=== PATIENT | male | born 1970 | race Caucasian/White ===

== ENCOUNTER 2023-05-27 12:51 | Emergency (ER) | payer MEDICAID, OTHER ==
[2023-05-27 13:45] LABS: BASOPHILS PERCENT AUTO 0.7 % (0.3-3.8); EOSINOPHILS ABSOLUTE AUTO 0.1 x10-3/uL (0.0-0.6); EOSINOPHILS PERCENT AUTO 2.1 % (0.1-6.8); HEMATOCRIT 38.7 % (38.3-50.1); HEMOGLOBIN 13.1 g/dL (12.9-17.7); LYMPHOCYTES ABSOLUTE AUTO 2.2 x10-3/uL (0.5-4.5); LYMPHOCYTES PERCENT AUTO 42.9 % (15.8-45.3); MEAN CORPUSCULAR HGB CONC 33.9 g/dL (28.7-35.3); MEAN CORPUSCULAR VOLUME 97.3 fL (80.8-98.7); MEAN PLATELET VOLUME 9.9 fL (6.7-11.0); MONOCYTES ABSOLUTE AUTO 0.6 x10-3/uL (0.0-1.2); MONOCYTES PERCENT AUTO 10.8 % (5.5-15.2); NEUTROPHILS ABSOLUTE AUTO 2.3 x10-3/uL (1.7-6.9); NEUTROPHILS PERCENT AUTO 43.5 % (40.3-71.8); PLATELET COUNT,PLT 157 x10(3)uL (117-477); RED BLOOD CELL COUNT 3.97 x10(6)uL (3.90-5.90); RED CELL DISTRIBUTION WIDTH 13.5 % (12.4-15.0); WHITE BLOOD CELL COUNT,WBC 5.2 x10-3/uL (3.2-10.1)
[2023-05-27 13:46] LABS: BLOOD UREA NITROGEN,BUN 22 mg/dL (7-18); BUN/CREATININE RATIO 18.3 (9-20); CALCIUM 10.3 mg/dL (8.6-10.2); CARBON DIOXIDE,CO2 28 mmol/L (21-32); CHLORIDE,CL 100 mmol/L (100-110); CREATININE 1.2 mg/dL (0.70-1.30); EST CRCL DRUG DOSING (CG) 65.79 mL/min; ESTIMATED GFR 72 mL/min (>60); GLUCOSE RANDOM 129 mg/dL (80-116); POTASSIUM,K 4.1 mmol/L (3.5-5.3); SODIUM,NA 136 mmol/L (135-145)
[2023-05-27 13:52] LABS: A/G RATIO 1.3; ALANINE AMINOTRANSFERASE,ALT 25 U/L (12-36); ALBUMIN 3.9 g/dL (3.5-5.2); ALKALINE PHOSPHATASE 98 IU/L (56-112); AMYLASE 72 U/L (25-115); BILIRUBIN TOTAL 0.4 mg/dL (0.1-1.3)
[2023-05-27 14:12] LABS: ASPARTATE AMNIOTRANSFERASE,AST < 5 IU/L (5-25)
[2023-05-27 15:14] VITALS: BP 98/65; PULSE 88
[2023-05-27 15:52] LABS: BILIRUBIN,URINE NEGATIVE (NEGATIVE); GLUCOSE,URINE NORMAL (NORMAL); KETONES,URINE NEGATIVE (NEGATIVE); LEUKOCYTE ESTERASE,URINE NEGATIVE (NEGATIVE); NITRITE,URINE NEGATIVE (NEGATIVE); OCCULT BLOOD,URINE LARGE (NEGATIVE); PROTEIN,URINE NEGATIVE (NEGATIVE); UROBILINOGEN,URINE NORMAL (NEGATIVE)
[2023-05-27 16:02] LABS: APPEARANCE,URINE CLEAR (CLEAR); BACTERIA,URINE OCCASIONAL (NS); COLOR,URINE YELLOW (YELLOW); SQUAMOUS EPITHELIAL CELLS,UR OCCASIONAL (NS,R,O); WBC,URINE 0-5 (0-5)
== END 2023-05-27 15:39 | disposition home or self-care (01) ==
LOC: FB.ED 12:51
DX: N20.0 Calculus of kidney (principal); N30.90 Cystitis, unspecified without hematuria; M51.36 Other intervertebral disc degeneration, lumbar region
CPT/HCPCS: 36415; 74176; 80053; 81001; 82150; 83690; 85025; 99284

== ENCOUNTER 2023-12-16 05:51 | Emergency (ER) | payer MEDICARE, OTHER ==
[2023-12-16 06:23] VITALS: PULSE 118
[2023-12-16 06:35] LABS: HEMOGLOBIN 12.7 g/dL (12.9-17.7); LYMPHOCYTES ABSOLUTE AUTO 1.5 x10-3/uL (0.5-4.5); MONOCYTES ABSOLUTE AUTO 0.5 x10-3/uL (0.0-1.2); NEUTROPHILS ABSOLUTE AUTO 4.6 x10-3/uL (1.7-6.9); WHITE BLOOD CELL COUNT,WBC 6.6 x10-3/uL (3.2-10.1)
[2023-12-16 06:41] LABS: BASOPHILS PERCENT AUTO 0.4 % (0.3-3.8); EOSINOPHILS PERCENT AUTO 0.5 % (0.1-6.8); HEMATOCRIT 36.3 % (38.3-50.1); LYMPHOCYTES PERCENT AUTO 22.5 % (15.8-45.3); MEAN CORPUSCULAR HEMOGLOBIN 32.5 pg (27.0-33.3); MEAN CORPUSCULAR HGB CONC 35.1 g/dL (28.7-35.3); MEAN CORPUSCULAR VOLUME 92.6 fL (80.8-98.7); MEAN PLATELET VOLUME 11.2 fL (6.7-11.0); MONOCYTES PERCENT AUTO 7.3 % (5.5-15.2); NEUTROPHILS PERCENT AUTO 69.3 % (40.3-71.8); PLATELET COUNT,PLT 190 x10(3)uL (117-477); RED BLOOD CELL COUNT 3.91 x10(6)uL (3.90-5.90); RED CELL DISTRIBUTION WIDTH 13.4 % (12.4-15.0)
[2023-12-16 06:52] LABS: A/G RATIO 0.9; ALKALINE PHOSPHATASE 159 IU/L (56-112); BILIRUBIN TOTAL 1.4 mg/dL (0.1-1.3); BLOOD UREA NITROGEN,BUN 35 mg/dL (7-18); BUN/CREATININE RATIO 6.1 (9-20); CARBON DIOXIDE,CO2 20 mmol/L (21-32); CHLORIDE,CL 94 mmol/L (100-110); ESTIMATED GFR 11 mL/min (>60); GLUCOSE RANDOM 383 mg/dL (80-116); POTASSIUM,K 4.3 mmol/L (3.5-5.3); PROTEIN TOTAL,TP 6.4 g/dL (6.0-8.0); SODIUM,NA 129 mmol/L (135-145)
[2023-12-16 06:55] LABS: TROPONIN I 33.9 pg/mL (4.0-60.3)
[2023-12-16 07:04] LABS: C-REACTIVE PROTEIN 7.57 mg/dL (<0.50)
[2023-12-16 07:06] LABS: CREATININE 5.7 mg/dL (0.70-1.30)
[2023-12-16] MEDS: Sodium Chloride 0.9% 10 ML Syringe FLUSH PRN (07:15)
[2023-12-16] MEDS: Sodium Chloride 0.9% 1,000 ML IV ONE (07:18)
[2023-12-16] MEDS: Sodium Chloride 0.9% 1,000 ML IV SCH ×2 (07:32→14:16)
[2023-12-16 07:55] LABS: ALANINE AMINOTRANSFERASE,ALT 87 U/L (12-36); ASPARTATE AMNIOTRANSFERASE,AST 30 IU/L (5-25)
[2023-12-16 08:38] LABS: INFLUENZA A NAA NEGATIVE (NEGATIVE); INFLUENZA B NAA NEGATIVE (NEGATIVE); RESPIRATORY SYNCYTIAL VIR NAA NEGATIVE (NEGATIVE)
[2023-12-16 08:44] LABS: CORONAVIRUS COVID-19 NAA NEGATIVE (NEGATIVE)
[2023-12-16 09:43] LABS: BILIRUBIN,URINE SMALL (NEGATIVE); GLUCOSE,URINE 250 mg/dL (NORMAL); KETONES,URINE NEGATIVE (NEGATIVE); LEUKOCYTE ESTERASE,URINE SMALL (NEGATIVE); NITRITE,URINE NEGATIVE (NEGATIVE); OCCULT BLOOD,URINE MODERATE (NEGATIVE); PROTEIN,URINE TRACE mg/dL (NEGATIVE); UROBILINOGEN,URINE 1 mg/dL (NEGATIVE)
[2023-12-16 09:46] LABS: APPEARANCE,URINE SLIGHTLY CLOUDY (CLEAR); BACTERIA,URINE MODERATE (NS); COLOR,URINE YELLOW (YELLOW); RBC,URINE 0-5 (0-5); SQUAMOUS EPITHELIAL CELLS,UR FEW (NS,R,O)
[2023-12-16] MEDS: Levofloxacin/Dextrose 5%-Water 750 MG in Premix Bag 1 BAG IV ONE (12:14)
[2023-12-16 15:08] VITALS: BP 94/56
[2023-12-17 19:08] LABS: PROCALCITONIN 0.63 ng/mL
== END 2023-12-16 15:00 ==
LOC: FB.ED 05:51
DX: I95.9 Hypotension, unspecified (principal); E87.1 Hypo-osmolality and hyponatremia; N17.9 Acute kidney failure, unspecified; R73.9 Hyperglycemia, unspecified; R74.01 Elevation of levels of liver transaminase levels; R00.0 Tachycardia, unspecified; R79.89 Other specified abnormal findings of blood chemistry; E80.6 Other disorders of bilirubin metabolism; E88.09 Other disorders of plasma-protein metabolism, not elsewhere classified; R74.8 Abnormal levels of other serum enzymes; E86.0 Dehydration; E66.9 Obesity, unspecified; Z85.72 Personal history of non-Hodgkin lymphomas; W19.XXXA Unspecified fall, initial encounter
CPT/HCPCS: 0241U; 36415; 70450; 71045; 73080; 74176; 80053; 81001; 83605; 83880; 84145; 84484; 85025; 86140; 87040; 87086; 93005; 93010; 96361; 96365; 96366; 99285; J1956; J3490; J7030

== ENCOUNTER 2024-01-08 12:40 | Emergency (ER) | payer MEDICARE, OTHER ==
[2024-01-08 13:04] LABS: BASOPHILS PERCENT AUTO 0.3 % (0.3-3.8); EOSINOPHILS ABSOLUTE AUTO 0.1 x10-3/uL (0.0-0.6); EOSINOPHILS PERCENT AUTO 0.7 % (0.1-6.8); HEMATOCRIT 40.8 % (38.3-50.1); HEMOGLOBIN 13.5 g/dL (12.9-17.7); LYMPHOCYTES ABSOLUTE AUTO 1.8 x10-3/uL (0.5-4.5); LYMPHOCYTES PERCENT AUTO 15.6 % (15.8-45.3); MEAN CORPUSCULAR HEMOGLOBIN 32.5 pg (27.0-33.3); MEAN CORPUSCULAR HGB CONC 33.2 g/dL (28.7-35.3); MEAN CORPUSCULAR VOLUME 97.7 fL (80.8-98.7); MEAN PLATELET VOLUME 9.3 fL (6.7-11.0); MONOCYTES ABSOLUTE AUTO 1.4 x10-3/uL (0.0-1.2); MONOCYTES PERCENT AUTO 12.2 % (5.5-15.2); NEUTROPHILS ABSOLUTE AUTO 8.1 x10-3/uL (1.7-6.9); NEUTROPHILS PERCENT AUTO 71.2 % (40.3-71.8); PLATELET COUNT,PLT 280 x10(3)uL (117-477); RED BLOOD CELL COUNT 4.17 x10(6)uL (3.90-5.90); RED CELL DISTRIBUTION WIDTH 15.1 % (12.4-15.0); WHITE BLOOD CELL COUNT,WBC 11.4 x10-3/uL (3.2-10.1)
[2024-01-08 13:09] VITALS: BP 148/96; PULSE 104
[2024-01-08 13:11] LABS: BILIRUBIN,URINE NEGATIVE (NEGATIVE); GLUCOSE,URINE NORMAL (NORMAL); KETONES,URINE NEGATIVE (NEGATIVE); LEUKOCYTE ESTERASE,URINE NEGATIVE (NEGATIVE); NITRITE,URINE NEGATIVE (NEGATIVE); OCCULT BLOOD,URINE NEGATIVE (NEGATIVE); PROTEIN,URINE NEGATIVE (NEGATIVE); UROBILINOGEN,URINE NORMAL (NEGATIVE)
[2024-01-08 13:12] LABS: BLOOD UREA NITROGEN,BUN 16 mg/dL (7-18); BUN/CREATININE RATIO 12.3 (9-20); CALCIUM 11.2 mg/dL (8.6-10.2); CARBON DIOXIDE,CO2 28 mmol/L (21-32); CHLORIDE,CL 105 mmol/L (100-110); CREATININE 1.3 mg/dL (0.70-1.30); EST CRCL DRUG DOSING (CG) 55.85 mL/min; ESTIMATED GFR 65 mL/min (>60); GLUCOSE RANDOM 66 mg/dL (80-116); POTASSIUM,K 3.7 mmol/L (3.5-5.3); SODIUM,NA 143 mmol/L (135-145)
[2024-01-08 13:17] LABS: APPEARANCE,URINE CLEAR (CLEAR); BACTERIA,URINE FEW (NS); CALCIUM OXALATE CRYSTALS,URINE OCCASIONAL (NS); COARSE GRANULAR CASTS,URINE OCCASIONAL (NS); COLOR,URINE YELLOW (YELLOW); MUCUS,URINE FEW (NS); RBC,URINE 0-5 (0-5); SQUAMOUS EPITHELIAL CELLS,UR OCCASIONAL (NS,R,O); WBC,URINE 0-5 (0-5)
[2024-01-08 13:18] LABS: A/G RATIO 0.9; ALANINE AMINOTRANSFERASE,ALT 54 U/L (12-36); ALBUMIN 3.7 g/dL (3.5-5.2); ALKALINE PHOSPHATASE 117 IU/L (56-112); ASPARTATE AMNIOTRANSFERASE,AST 44 IU/L (5-25); BILIRUBIN TOTAL 0.7 mg/dL (0.1-1.3); PROTEIN TOTAL,TP 7.8 g/dL (6.0-8.0)
[2024-01-08 13:18] LABS: AMPHETAMINES SCREEN, URINE NEGATIVE (NEGATIVE); BARBITURATE SCREEN,URINE NEGATIVE (NEGATIVE); BENZODIAZEPINES SCREEN,URINE NEGATIVE (NEGATIVE); BUPRENORPHINE SCREEN,URINE NEGATIVE (NEGATIVE); METHADONE SCREEN, URINE NEGATIVE (NEGATIVE); METHAMPHETAMINE SCREEN, URINE NEGATIVE (NEGATIVE); OXYCODONE SCREEN,URINE NEGATIVE (NEGATIVE); THC SCREEN,URINE NEGATIVE (NEGATIVE)
[2024-01-08 14:07] LABS: INFLUENZA A NAA NEGATIVE (NEGATIVE); INFLUENZA B NAA NEGATIVE (NEGATIVE); RESPIRATORY SYNCYTIAL VIR NAA NEGATIVE (NEGATIVE)
[2024-01-08 14:09] LABS: CORONAVIRUS COVID-19 NAA NEGATIVE (NEGATIVE)
[2024-01-08 15:44] LABS: ETHANOL BLOOD MEDICAL < 0.03 % (<0.03)
[2024-01-08] MEDS: Sodium Chloride 0.9% 1,000 ML IV SCH (15:47)
[2024-01-08 15:56] LABS: ACETAMINOPHEN < 2 ug/mL (<2); SALICYLATE < 2.8 mg/dL (<2.8)
[2024-01-10 23:58] LABS: THYROXINE FREE 1.1 ng/dL (0.9-1.7)
== END 2024-01-08 18:00 | disposition home or self-care (01) ==
LOC: FB.ED 12:40
DX: E86.0 Dehydration (principal); E16.2 Hypoglycemia, unspecified; I25.2 Old myocardial infarction; Z79.899 Other long term (current) drug therapy
CPT/HCPCS: 0241U; 36415; 80053; 80143; 80179; 80307; 81001; 82947; 84439; 84443; 85025; 96360; 99284; 99284-25; J7030

== ENCOUNTER 2024-07-28 18:52 | Emergency (ER) | payer OTHER ==
[2024-07-28 19:39] LABS: BASOPHILS PERCENT AUTO 0.4 % (0.3-3.8); EOSINOPHILS PERCENT AUTO 0.3 % (0.1-6.8); HEMATOCRIT 45.2 % (38.3-50.1); HEMOGLOBIN 15.4 g/dL (12.9-17.7); LYMPHOCYTES ABSOLUTE AUTO 1.8 x10-3/uL (0.5-4.5); LYMPHOCYTES PERCENT AUTO 26.7 % (15.8-45.3); MEAN CORPUSCULAR HEMOGLOBIN 31.4 pg (27.0-33.3); MEAN CORPUSCULAR VOLUME 92.4 fL (80.8-98.7); MEAN PLATELET VOLUME 9.2 fL (6.7-11.0); MONOCYTES ABSOLUTE AUTO 0.9 x10-3/uL (0.0-1.2); MONOCYTES PERCENT AUTO 12.9 % (5.5-15.2); NEUTROPHILS PERCENT AUTO 59.7 % (40.3-71.8); PLATELET COUNT,PLT 206 x10(3)uL (117-477); RED BLOOD CELL COUNT 4.89 x10(6)uL (3.90-5.90); RED CELL DISTRIBUTION WIDTH 14.3 % (12.4-15.0); WHITE BLOOD CELL COUNT,WBC 6.8 x10-3/uL (3.2-10.1)
[2024-07-28 19:40] LABS: BLOOD UREA NITROGEN,BUN 16 mg/dL (7-18); BUN/CREATININE RATIO 12.3 (9-20); CALCIUM 11.2 mg/dL (8.6-10.2); CARBON DIOXIDE,CO2 29 mmol/L (21-32); CHLORIDE,CL 102 mmol/L (100-110); CREATININE 1.3 mg/dL (0.70-1.30); EST CRCL DRUG DOSING (CG) 60.03 mL/min; ESTIMATED GFR 65 mL/min (>60); GLUCOSE RANDOM 96 mg/dL (80-116); POTASSIUM,K 3.6 mmol/L (3.5-5.3); SODIUM,NA 137 mmol/L (135-145)
[2024-07-28 19:45] LABS: ALANINE AMINOTRANSFERASE,ALT 46 U/L (12-36); ALBUMIN 3.5 g/dL (3.5-5.2); ALKALINE PHOSPHATASE 97 IU/L (56-112); ASPARTATE AMNIOTRANSFERASE,AST 30 IU/L (5-25); BILIRUBIN TOTAL 0.5 mg/dL (0.1-1.3); PROTEIN TOTAL,TP 7.2 g/dL (6.0-8.0)
[2024-07-28] MEDS: OLANZapine 10 MG Vial IM ONE (19:46)
[2024-07-28 19:54] LABS: TSH ULTRASENSITIVE 2.11 IU/mL (0.36-3.74)
[2024-07-28 20:01] LABS: ETHANOL BLOOD MEDICAL < 0.03 % (<0.03)
[2024-07-28 20:17] LABS: AMPHETAMINES SCREEN, URINE NEGATIVE (NEGATIVE); BARBITURATE SCREEN,URINE NEGATIVE (NEGATIVE); BENZODIAZEPINES SCREEN,URINE NEGATIVE (NEGATIVE); METHADONE SCREEN, URINE NEGATIVE (NEGATIVE); METHAMPHETAMINE SCREEN, URINE NEGATIVE (NEGATIVE); OXYCODONE SCREEN,URINE NEGATIVE (NEGATIVE); THC SCREEN,URINE NEGATIVE (NEGATIVE)
[2024-07-28 20:18] LABS: BUPRENORPHINE SCREEN,URINE NEGATIVE (NEGATIVE)
[2024-07-28 23:02] VITALS: BP 119/82; PULSE 100
[2024-07-31 02:44] LABS: THYROXINE FREE 1.2 ng/dL (0.9-1.7)
== END 2024-07-29 03:00 | disposition home or self-care (01) ==
LOC: FB.ED 18:52
DX: F28 Other psychotic disorder not due to a substance or known physiological condition (principal); I25.2 Old myocardial infarction; Z79.899 Other long term (current) drug therapy
CPT/HCPCS: 36415; 80053; 80307; 84439; 84443; 85025; 96372; 99283; 99285; J2359

== ENCOUNTER 2024-08-03 06:58 | Emergency (ER) | payer OTHER ==
[2024-08-03 07:48] LABS: BASOPHILS PERCENT AUTO 0.4 % (0.3-3.8); EOSINOPHILS ABSOLUTE AUTO 0.1 x10-3/uL (0.0-0.6); EOSINOPHILS PERCENT AUTO 0.8 % (0.1-6.8); HEMATOCRIT 41.1 % (38.3-50.1); HEMOGLOBIN 14.1 g/dL (12.9-17.7); LYMPHOCYTES ABSOLUTE AUTO 2.4 x10-3/uL (0.5-4.5); LYMPHOCYTES PERCENT AUTO 36.8 % (15.8-45.3); MEAN CORPUSCULAR HEMOGLOBIN 31.1 pg (27.0-33.3); MEAN CORPUSCULAR HGB CONC 34.2 g/dL (28.7-35.3); MEAN CORPUSCULAR VOLUME 91.1 fL (80.8-98.7); MEAN PLATELET VOLUME 9.8 fL (6.7-11.0); MONOCYTES ABSOLUTE AUTO 0.4 x10-3/uL (0.0-1.2); MONOCYTES PERCENT AUTO 5.8 % (5.5-15.2); NEUTROPHILS ABSOLUTE AUTO 3.7 x10-3/uL (1.7-6.9); NEUTROPHILS PERCENT AUTO 56.2 % (40.3-71.8); PLATELET COUNT,PLT 229 x10(3)uL (117-477); RED BLOOD CELL COUNT 4.51 x10(6)uL (3.90-5.90); RED CELL DISTRIBUTION WIDTH 14.4 % (12.4-15.0); WHITE BLOOD CELL COUNT,WBC 6.5 x10-3/uL (3.2-10.1)
[2024-08-03 07:57] LABS: BLOOD UREA NITROGEN,BUN 12 mg/dL (7-18); BUN/CREATININE RATIO 8.6 (9-20); CALCIUM 11.2 mg/dL (8.6-10.2); CARBON DIOXIDE,CO2 27 mmol/L (21-32); CHLORIDE,CL 102 mmol/L (100-110); CREATININE 1.4 mg/dL (0.70-1.30); ESTIMATED GFR 59 mL/min (>60); GLUCOSE RANDOM 129 mg/dL (80-116); POTASSIUM,K 3.5 mmol/L (3.5-5.3); SODIUM,NA 140 mmol/L (135-145)
[2024-08-03 08:03] LABS: A/G RATIO 1.1; ALANINE AMINOTRANSFERASE,ALT 68 U/L (12-36); ALBUMIN 3.8 g/dL (3.5-5.2); ALKALINE PHOSPHATASE 86 IU/L (56-112); ASPARTATE AMNIOTRANSFERASE,AST 40 IU/L (5-25); BILIRUBIN TOTAL 0.6 mg/dL (0.1-1.3); PROTEIN TOTAL,TP 7.2 g/dL (6.0-8.0)
[2024-08-03 08:08] LABS: AMPHETAMINES SCREEN, URINE NEGATIVE (NEGATIVE); BARBITURATE SCREEN,URINE NEGATIVE (NEGATIVE); BENZODIAZEPINES SCREEN,URINE NEGATIVE (NEGATIVE); BUPRENORPHINE SCREEN,URINE NEGATIVE (NEGATIVE); METHADONE SCREEN, URINE NEGATIVE (NEGATIVE); METHAMPHETAMINE SCREEN, URINE NEGATIVE (NEGATIVE); OXYCODONE SCREEN,URINE NEGATIVE (NEGATIVE); THC SCREEN,URINE NEGATIVE (NEGATIVE)
[2024-08-03 08:11] LABS: TSH ULTRASENSITIVE 4.24 IU/mL (0.36-3.74)
[2024-08-03 08:28] LABS: ETHANOL BLOOD MEDICAL < 0.03 % (<0.03)
[2024-08-03 08:42] LABS: BILIRUBIN,URINE NEGATIVE (NEGATIVE); GLUCOSE,URINE NORMAL (NORMAL); KETONES,URINE NEGATIVE (NEGATIVE); LEUKOCYTE ESTERASE,URINE NEGATIVE (NEGATIVE); NITRITE,URINE NEGATIVE (NEGATIVE); OCCULT BLOOD,URINE NEGATIVE (NEGATIVE); PROTEIN,URINE NEGATIVE (NEGATIVE); UROBILINOGEN,URINE NORMAL (NEGATIVE)
[2024-08-03 08:43] LABS: APPEARANCE,URINE CLEAR (CLEAR); COLOR,URINE YELLOW (YELLOW)
[2024-08-03] MEDS ORDERED: buPROPion 150 MG Tab.SR PO ONE (12:28)
[2024-08-03] MEDS: Ibuprofen 400 MG Tab PO ONE (12:50)
[2024-08-03] MEDS: Acetaminophen 500 MG Tab PO ONE (12:50)
[2024-08-03] MEDS: buPROPion 150 MG Tab.ER PO ONE (12:51)
[2024-08-03] MEDS: OLANZapine 5 MG Tab PO ONE (12:51)
[2024-08-03] MEDS: DULoxetine 60 MG Cap PO ONE (12:51)
[2024-08-03 12:57] VITALS: BP 138/81; PULSE 104
[2024-08-05 17:03] LABS: THYROXINE, TOTAL T4 7.6 ug/dL (4.50-11.70)
== END 2024-08-03 17:34 | disposition home or self-care (01) ==
LOC: FB.ED 06:58
DX: F32.3 Major depressive disorder, single episode, severe with psychotic features (principal); F41.1 Generalized anxiety disorder; I25.2 Old myocardial infarction; Z79.891 Long term (current) use of opiate analgesic; Z79.899 Other long term (current) drug therapy; Z85.79 Personal history of other malignant neoplasms of lymphoid, hematopoietic and related tissues
CPT/HCPCS: 80053; 80307; 81003; 84436; 84443; 85025; 99285; A9270; 36415

== ENCOUNTER 2024-08-09 04:27 | Emergency (ER) | payer OTHER, MEDICAID ==
[2024-08-09] MEDS ORDERED: Naloxone 0.4 MG/ML SDV IVPUSH PRN (05:18)
[2024-08-09] MEDS ORDERED: Sodium Chloride 0.9% 10 ML Syringe FLUSH PRN (05:18)
[2024-08-09] MEDS: Ondansetron 4 MG/2 ML SDV IVPUSH ONE ×2 (05:32→20:02)
[2024-08-09] MEDS: Sodium Chloride 0.9% 1,000 ML IV SCH (05:32)
[2024-08-09] MEDS: Morphine 4 MG/ML VIAL IVPUSH ONE ×2 (05:33→20:02)
[2024-08-09 05:39] LABS: HEMATOCRIT 36.6 % (38.3-50.1); HEMOGLOBIN 12.5 g/dL (12.9-17.7); MEAN CORPUSCULAR HEMOGLOBIN 31.4 pg (27.0-33.3); MEAN CORPUSCULAR HGB CONC 34.1 g/dL (28.7-35.3); MEAN PLATELET VOLUME 9.3 fL (6.7-11.0); PLATELET COUNT,PLT 207 x10(3)uL (117-477); RED BLOOD CELL COUNT 3.98 x10(6)uL (3.90-5.90); WHITE BLOOD CELL COUNT,WBC 5.4 x10-3/uL (3.2-10.1)
[2024-08-09 05:44] LABS: BLOOD UREA NITROGEN,BUN 15 mg/dL (7-18); BUN/CREATININE RATIO 10.7 (9-20); CALCIUM 11.2 mg/dL (8.6-10.2); CARBON DIOXIDE,CO2 28 mmol/L (21-32); CHLORIDE,CL 105 mmol/L (100-110); CREATININE 1.4 mg/dL (0.70-1.30); ESTIMATED GFR 59 mL/min (>60); GLUCOSE RANDOM 112 mg/dL (80-116); POTASSIUM,K 3.4 mmol/L (3.5-5.3); SODIUM,NA 143 mmol/L (135-145)
[2024-08-09 05:51] LABS: A/G RATIO 1.4; ALANINE AMINOTRANSFERASE,ALT 41 U/L (12-36); ALBUMIN 3.8 g/dL (3.5-5.2); ALKALINE PHOSPHATASE 71 IU/L (56-112); ASPARTATE AMNIOTRANSFERASE,AST 25 IU/L (5-25); BILIRUBIN TOTAL 1.1 mg/dL (0.1-1.3); PROTEIN TOTAL,TP 6.6 g/dL (6.0-8.0)
[2024-08-09 06:20] LABS: BAND PERCENT MAN 2 % (0-6); LYMPHOCYTES PERCENT MAN 42 % (13-37); MONOCYTES PERCENT MAN 15 % (4-12); SEG NEUTROPHILS PERCENT MAN 41 % (46-82)
[2024-08-09 06:59] LABS: BILIRUBIN,URINE NEGATIVE (NEGATIVE); GLUCOSE,URINE NORMAL (NORMAL); KETONES,URINE NEGATIVE (NEGATIVE); LEUKOCYTE ESTERASE,URINE NEGATIVE (NEGATIVE); NITRITE,URINE NEGATIVE (NEGATIVE); OCCULT BLOOD,URINE NEGATIVE (NEGATIVE); PROTEIN,URINE NEGATIVE (NEGATIVE); UROBILINOGEN,URINE NORMAL (NEGATIVE)
[2024-08-09 07:07] LABS: APPEARANCE,URINE CLEAR (CLEAR); BACTERIA,URINE OCCASIONAL (NS); COLOR,URINE YELLOW (YELLOW); RBC,URINE 0-5 (0-5); SQUAMOUS EPITHELIAL CELLS,UR OCCASIONAL (NS,R,O); WBC,URINE 0-5 (0-5)
[2024-08-09] MEDS: OLANZapine 5 MG Tab PO ONE (20:06)
[2024-08-10] MEDS: diphenhydrAMINE 50 MG/ML SDV IVPUSH ONE (00:05)
[2024-08-10] MEDS: Acetaminophen/HYDROcodone 325-7.5 MG Tab PO PRN (04:47)
[2024-08-10 08:30] VITALS: BP 116/71; PULSE 91
== END 2024-08-10 10:28 ==
LOC: FB.ED 04:27
DX: S32.038A Other fracture of third lumbar vertebra, initial encounter for closed fracture (principal); S32.028A Other fracture of second lumbar vertebra, initial encounter for closed fracture; F23 Brief psychotic disorder; E86.0 Dehydration; F22 Delusional disorders; Z90.49 Acquired absence of other specified parts of digestive tract; I10 Essential (primary) hypertension; E78.00 Pure hypercholesterolemia, unspecified; E66.9 Obesity, unspecified; Z79.899 Other long term (current) drug therapy; W19.XXXA Unspecified fall, initial encounter
CPT/HCPCS: 36415; 70450; 72125; 72128; 72131; 74176; 80053; 81001; 83690; 83735; 85025; 93005; 93010; 96361; 96374; 96375; 96376; 99285; 99285-25; A9270-GY; J1200; J2270; J2405; J7030